=== PATIENT | female | born 1955 | race Caucasian/White ===

== ENCOUNTER 2017-12-14 05:30 | Day surgery (SDC) | payer BC ==
[~2017-12-14] VITALS: Ht 160 cm; Wt 95.3 kg
[2017-12-14] MEDS ORDERED: MIDAZOLAM HCL 5 MG/5 ML VIAL IVP ONE (07:35)
[2017-12-14] MEDS ORDERED: CEFAZOLIN 1 GM IVPB PREMIX 50 ML IV ONE (07:35)
[2017-12-14] MEDS ORDERED: fentaNYL CITRATE/PF 100 MCG/2 ML AMP IVP ONE (07:35)
[2017-12-14] MEDS ORDERED: LR 1,000 ML IV.SOLN IV ONE (07:35)
[2017-12-14] MEDS ORDERED: PROPOFOL 200MG/ 20ML VIAL (DIPRIVAN) IV ONE (07:35)
[2017-12-14] MEDS ORDERED: NS 1000 ML IV.SOLN IV ONE (07:35)
[2017-12-14] MEDS ORDERED: SEVOFLURANE 15 MIN GAS INH ONE (07:35)
[2017-12-14] MEDS ORDERED: OXYCODONE/ACETAMINOPHEN 5-325 TABLET PO PRN (08:45)
[2017-12-14] MEDS ORDERED: HYDROcodone/ACETAMIN 5-325 MG TAB (NORCO/ VICODIN) PO PRN (08:45)
[2017-12-14] MEDS ORDERED: ONDANSETRON HCL 4 MG/2 ML VIAL IVP PRN (08:45)
[2017-12-14] MEDS ORDERED: fentaNYL CITRATE/PF 100 MCG/2 ML AMP IVP PRN ×2 (09:30)
[2017-12-14 10:36] VITALS: BP_SYST 121
== END 2017-12-14 10:35 | disposition home or self-care (01) ==
LOC: SMU 05:30 → SDS 05:30
PROVIDERS: ATTEND Specialist
DX: N84.0 Polyp of corpus uteri (principal); Z79.899 Other long term (current) drug therapy; E04.9 Nontoxic goiter, unspecified; I10 Essential (primary) hypertension; R00.0 Tachycardia, unspecified; E03.9 Hypothyroidism, unspecified; E66.3 Overweight
CPT/HCPCS: 88305; J0690; J2250; J2704; J3010; J7030; J7120